=== PATIENT | female | born 2005 | race Two or more races ===

== ENCOUNTER 2025-08-20 11:19 | Emergency (ER) | payer OTHER ==
[~2025-08-20] VITALS: Ht 157.5 cm; Wt 83.5 kg
[~2025-08-20 11:19] MED LIST: CIPRO500 MG PO; IBU600 MG PO; INTESTINEX680 M1 PO; PEPCID20 MG PO
[2025-08-20] MEDS ORDERED: ANTIFUNGAL113 GM TOP (12:58)
[2025-08-20] MEDS ORDERED: FLUCONAZOLE150 MG PO (13:13)
== END 2025-08-20 14:09 | disposition home or self-care (01) ==
LOC: ER 11:20
DX: R21 Rash and other nonspecific skin eruption (principal); L30.8 Other specified dermatitis; Z88.8 Allergy status to other drugs, medicaments and biological substances; J45.909 Unspecified asthma, uncomplicated